=== PATIENT | male | born 1975 | race Caucasian/White ===

== ENCOUNTER 2021-01-27 10:27 | Outpatient (REF) | payer MEDICAID, SELFPAY ==
[2021-01-27 12:00] LABS: Prostate Specific Antigen 0.62 ng/mL (<0.05-4.0)
== END 2021-01-27 10:28 | disposition home or self-care (01) ==
LOC: HO.LAB 10:27
PROVIDERS: PCP Family Medicine; Visit Provider Family Medicine
DX: Z12.5 Encounter for screening for malignant neoplasm of prostate (principal); R39.15 Urgency of urination
CPT/HCPCS: 36415; 84153

== ENCOUNTER → 2021-04-25 08:53 | Outpatient (BNVA) | payer MEDICAID, SELFPAY | PROVIDERS: PCP Family Medicine; Visit Provider Nurse Practitioner Family | DX: M47.816 Spondylosis without myelopathy or radiculopathy, lumbar region (principal); M53.9 Dorsopathy, unspecified | CPT/HCPCS: 99212 ==

== ENCOUNTER 2021-05-09 06:06 | Outpatient (REF) | payer MEDICAID, SELFPAY ==
--- NOTE | ~2021-05-09 | FL_ITS ---
EXAMINATION: XR FLUOROSCOPY WITH IMAGES CLINICAL INFORMATION: Spondylosis without myelopathy or radiculopathy. COMPARISON: None. TECHNIQUE: Fluoroscopy performed by Tanya Braga NP Fluoroscopy time: 1.1 minutes DAP: 10.0 Gycm2 Images: 1 FINDINGS: There are bilateral needles positioned adjacent to the pedicles with contrast opacification of left epidural space and right extradural space along the right L5 nerve root pathway. Visualized bones are grossly unremarkable. SI joints are normal and symmetrical. FL/FL guidance in treatment room IMPRESSION: Fluoroscopy was provided to Tanya Braga NP for pain management.
== END 2021-05-09 06:07 | disposition home or self-care (01) ==
LOC: HO.RADIR 06:06
PROVIDERS: Visit Provider Internal Medicine
DX: M47.816 Spondylosis without myelopathy or radiculopathy, lumbar region (principal); M53.9 Dorsopathy, unspecified
CPT/HCPCS: 64483; 64484; J1100; Q9967

== ENCOUNTER → 2021-06-12 08:48 | Outpatient (BNVA) | payer MEDICAID, SELFPAY | PROVIDERS: PCP Family Medicine; Visit Provider Nurse Practitioner Family | DX: M47.816 Spondylosis without myelopathy or radiculopathy, lumbar region (principal); M53.9 Dorsopathy, unspecified | CPT/HCPCS: 99212 ==

== ENCOUNTER → 2022-05-23 13:37 | Outpatient (BNVA) | payer OTHER, SELFPAY | PROVIDERS: PCP Family Medicine; Visit Provider Physician Assistant | DX: S53.491A Other sprain of right elbow, initial encounter (principal); X50.0XXA Overexertion from strenuous movement or load, initial encounter; M77.11 Lateral epicondylitis, right elbow | CPT/HCPCS: 73070; 99203 ==

== ENCOUNTER → 2022-05-28 14:58 | Outpatient (BNVA) | payer OTHER, SELFPAY | PROVIDERS: PCP Family Medicine; Visit Provider Physician Assistant Medical | DX: S53.491A Other sprain of right elbow, initial encounter (principal); X50.0XXA Overexertion from strenuous movement or load, initial encounter; M77.11 Lateral epicondylitis, right elbow | CPT/HCPCS: 99213 ==

== ENCOUNTER 2022-07-17 11:30 | Outpatient (REF) | payer MEDICAID, SELFPAY ==
[2022-07-17 12:42] LABS: Prostate Specific Antigen 0.79 ng/mL (<0.05-4.0); ~HepC Num1 0.13 S/CO (0.00-0.79); ~Hepatitis C Antibody Nonreactive (Nonreactive)
== END 2022-07-17 11:31 | disposition home or self-care (01) ==
LOC: HO.LAB 11:30
PROVIDERS: PCP Family Medicine; Visit Provider Family Medicine
DX: I10 Essential (primary) hypertension (principal)
CPT/HCPCS: 36415; 84153; 86803

== ENCOUNTER 2022-11-01 08:16 | Day surgery (SDC) | payer MEDICAID, SELFPAY ==
[2022-11-01 08:42] VITALS: BMI 31.3
[2022-11-01 08:45] VITALS: BP 137/98; PULSE 68; RESP 18; TEMP 36.1; O2SAT 99
[2022-11-01] MEDS: Lactated Ringers 1,000 ML 80 ML IVCONT (09:14)
--- NOTE | 2022-11-01 09:59 | HO.ANESPROP2 ---
HPI - Anesthesia Eval Consult details Narrative: sceening PMFSH Active Problems Active Problems: All Active Problems (Updated 04/25/21 @ 10:13 by Tanya Braga NP) Multilevel degenerative disc disease (Acute) Lumbar facet arthropathy (Acute) Hypertension (Acute) Past Medical History Medical History (Updated 04/25/21 @ 10:13 by Tanya Braga NP) Hypertension Family History Family history of problems with anesthesia: No Surgical History History of Problems with Anesthesia: No Social History Social History Patient Tobacco Use Status: Former Tobacco user Quit Date: 2006 Use of substances other than those prescribed or required for medical reasons: No Are you DNR?: No Advance Directives: No Advance Directives Information Provided: Yes Meds Allergies Allergy/AdvReac Type Severity Reaction Status Date / Time No Known Allergies Allergy Verified 06/12/21 08:57 [No Known Allergies*] Active Medications: Current Medications Lactated Ringer's (Lr) 1,000 mls @ 80 mls/hr IVCONT .[id number] SURJIT Last Admin: 11/01/22 09:14 Dose: 80 mls/hr Sodium Biphosphate/Sodium Phosphate (Sodium Phosphate,Imperial-Dibasic 133 Ml Enema) 133 ml PA ONCE PRN PRN Reason: Poor Colonoscopy Prep Results Home Medications Medication Instructions Recorded Confirmed Last Taken Type baclofen 10 mg tablet 10 mg PO BID 04/25/21 06/12/21 Unknown History lisinopril 20 mg tablet 20 mg PO DAILY 04/25/21 06/12/21 Unknown History naproxen sodium 220 mg tablet 220 mg PO BID PRN 04/25/21 06/12/21 Unknown History (Flanax (naproxen)) cetirizine 10 mg tablet 1 tab PO DAILY PRN allergies 10/31/22 10/31/22 Unknown History diclofenac sodium 1 % topical gel 2 g topical QID PRN pain 10/31/22 10/31/22 Unknown History fluticasone propionate 50 1 spray intranasal DAILY 10/31/22 10/31/22 Unknown History mcg/actuation nasal spray,suspension ketotifen fumarate 0.025 % (0.035 1 drp ophthalmic (eye) BID PRN 10/31/22 10/31/22 Unknown History %) eye drops redness Exam Exam Date and Time: November 01, 2022 0959 Height,Weight and Vital Signs: Height 5 ft 7 in Weight 90.718 kg Last Vital Signs Temp 97.0 F 11/01/22 08:45 Pulse 68 11/01/22 08:45 Resp 18 11/01/22 08:45 BP 137/98 H 11/01/22 08:45 Pulse Ox 99 11/01/22 08:45 O2 Del Method 11/01/22 08:45 Airway Mallampati Class: I TM Dist: >3cm Neck ROM: Full Heart: rr Lungs: cta Assessment and Plan Final Anesthetic Review Family History of Problems with Anesthesia: No History of Problems with Anesthesia: No NPO: Yes ASA Class: II Final Preanesthetic Review: No Changes in Pt Med Stat Patient Risk: Low Procedure Risk: Low Anesthetic Plan Anesthetic Plan: MAC: Disposition: Standard PACU
--- NOTE | 2022-11-01 10:26 | P.BOP_ITS ---
Brief Operative Note Date of Service: 11/01/22 Pre-op diagnosis: Screening Post-op diagnosis: other (Polyps) Procedure: Colonoscopy to the cecum and TI with cold snare polypectomy in the transverse colon, and bx/removal of polyp Surgeon: Justin Benson Anesthesia: MAC Was an Service Station Cashier used for this Procedure?: No Estimated blood loss (mL): 2.0 Pathology: other (A. Transverse colon polyp B. Polyp at 20cm) Condition: stable Disposition: PACU
[2022-11-01 10:28] VITALS: BP 86/45; PULSE 72; RESP 18; TEMP 36.1; O2SAT 95
[2022-11-01 10:34] VITALS: BP 96/57; PULSE 68; RESP 16; O2SAT 95
[2022-11-01 10:43] VITALS: BP 109/74; PULSE 68; RESP 18; TEMP 36.1; O2SAT 98
--- NOTE | 2022-11-01 12:01 | OP_ITS ---
SURGEON: Justin Benson MD INDICATIONS: The patient presents for evaluation of colorectal cancer screening. Full consent was obtained from him for this, including risks of bleeding and perforation. PREOPERATIVE DIAGNOSIS: Colorectal cancer screening. POSTOPERATIVE DIAGNOSIS: PROCEDURE PERFORMED: Colonoscopy to the cecum and terminal ileum with biopsy and removal of polyp. ESTIMATED BLOOD LOSS: COMPLICATIONS: ANESTHESIA: Monitored anesthesia care ASSISTANTS: SPECIMENS: POSTOPERATIVE DIAGNOSES: Colorectal cancer screening, small colon polyps, internal hemorrhoids. DESCRIPTION OF PROCEDURE: The patient was placed in the left lateral decubitus position. The digital rectal exam revealed no abnormalities. The Olympus video pediatric colonoscope was then entered into the rectum and advanced easily to the cecum. Once in the cecum, I did identify normal-appearing cecal pouch with appendiceal orifice and normal-appearing ileocecal valve. The terminal ileum was cannulated and it appeared normal. The scope was withdrawn back in the colon. The entire cecum and cecal valve appeared normal. The scope was then slowly withdrawn assessing all mucosal surfaces carefully. Preparation was excellent. In the area of the transverse colon was an approximately 4 or 5 mm polyp, which was removed by cold snare polypectomy and recovered by suction. The polypectomy site appeared clean, without any sign of residual polyp nor any significant bleeding. At 20 cm, there was an approximately 3 mm polyp which was removed completely with a cold biopsy forceps. I did not visualize any other polyps, colitis nor angiodysplasia. In the rectum, scope was retroflexed visualizing internal hemorrhoids but no other pathology. The rectal mucosa appeared normal. The scope was straightened and withdrawn from the patient. He tolerated the procedure well and was returned to the recovery area in stable condition. IMPRESSION: 1. Small colon polyps. 2. Internal hemorrhoids. PLAN: The results of the biopsies will be checked. If these are tubular adenomas I would recommend a followup colonoscopy in 5 years. It they are both hyperplastic I would recommend followup colonoscopy in 10 years. He will otherwise see me on a p.r.n. basis. This has been discussed with his . MD BENJI Martinez/LAWRENCE / [id number] MTDD
== END 2022-11-01 11:05 | disposition home or self-care (01) ==
PROVIDERS: PCP Family Medicine; Visit Provider Internal Medicine
PROC: 0DJD8ZZ Inspection of Lower Intestinal Tract, Via Natural or Artificial Opening Endoscopic (ICD-10-PCS; CPT 45378; principal; 2022-11-01 09:40)
DX: Z12.11 Encounter for screening for malignant neoplasm of colon (principal); K63.5 Polyp of colon; K64.8 Other hemorrhoids; I10 Essential (primary) hypertension; J30.2 Other seasonal allergic rhinitis; Z79.51 Long term (current) use of inhaled steroids; Z79.899 Other long term (current) drug therapy; Z87.891 Personal history of nicotine dependence
CPT/HCPCS: 45385; 45380; 88305

== ENCOUNTER 2023-10-14 11:00 | Outpatient (REF) | payer MEDICAID, SELFPAY ==
[2023-10-14 13:34] LABS: MANUAL DIFF FLAG NO
[2023-10-14 13:42] LABS: Basophils Percent Auto 0.6 % (0-2); Eosinophils Absolute Auto 0.1 X10*3/uL (0.0-0.4); Eosinophils Percent Auto 0.8 % (0-4); Hematocrit 46.5 % (42.0-52.0); Imm Gran Abs Auto 0.02 X10*3/uL (0.00-0.03); Imm Gran Pct Auto 0.3 % (0.0-0.4); Lymphocytes Percent Auto 27.7 % (20-40); Mean Corpuscular HGB Conc 34.4 g/dl (31.0-36.0); Mean Corpuscular Hemoglobin 29.9 pg (27.0-33.0); Mean Corpuscular Volume 86.9 fL (80.0-98.0); Mean Platelet Volume 9.4 fL (9.4-12.4); Monocytes Absolute Auto 0.6 X10*3/uL (0.1-1.2); Monocytes Percent Auto 8.6 % (2-11); Neutrophils Absolute Auto 4.5 x10*3/uL (2.0-8.3); Platelet Count 201 X10*3/uL (160-400); Red Blood Count 5.35 X10*6/uL (4.60-5.80); Red Cell Distribution Width 13.2 % (11.0-16.0); White Blood Count 7.2 X10*3/uL (4.8-10.8)
[2023-10-14 14:23] LABS: Estimated Average Glucose 103 mg/dL; Hemoglobin A1c % 5.2 % (<6.0)
[2023-10-14 14:50] LABS: Alanine Aminotransferase 29 U/L (0-40); Albumin Level 4.4 g/dL (3.5-5.0); Alkaline Phosphatase 70 U/L (39-117); Anion Gap 12 (12-20); Aspartate Amino Transferase 23 U/L (5-37); Bilirubin Total 0.7 mg/dL (0.0-1.0); Blood Urea Nitrogen 15 mg/dL (9-16); Calcium 9.3 mg/dL (8.4-10.2); Carbon Dioxide 30 mmol/L (22-29); Chloride 102 mmol/L (96-108); Cholesterol 177 mg/dL (<200); Estimated Glomerular Filt Rate > 60; Glucose Random 91 mg/dL (60-115); HDL Cholesterol 36 mg/dL (>40); LDL Cholesterol Calculated 120 mg/dL (<100); Potassium 4.2 mmol/L (3.3-5.1); Sodium 140 mmol/L (135-145); Total Protein 7.6 g/dL (6.5-8.0); Triglycerides 109 mg/dL (<150)
[2023-10-14 15:00] LABS: Reflex LDLD? No
[2023-10-14 15:07] LABS: TSH reflex Free T4 1.08 uIU/mL (0.32-4.0)
== END 2023-10-14 11:01 | disposition home or self-care (01) ==
LOC: HO.HHCL 11:00
PROVIDERS: Visit Provider Family Medicine
DX: I10 Essential (primary) hypertension (principal); R42 Dizziness and giddiness; R55 Syncope and collapse
CPT/HCPCS: 36415; 80053; 80061; 83036; 84443; 85025

== ENCOUNTER → 2023-10-21 12:45 | Outpatient (REF) | payer OTHER, SELFPAY ==
--- NOTE | 2023-10-21 12:48 | HM_ITS ---
Conclusion: 1. Patient was monitored for total period of 2 days 2. Baseline was normal sinus rhythm with average heart of 62 beats per minute 3. No significant pauses noted 4. Occasional PACs and PVCs noted 5. No patient reported events MTDD
== END ==
LOC: HO.CARD 12:45
PROVIDERS: PCP Family Medicine; Visit Provider Family Medicine
DX: R55 Syncope and collapse (principal)
CPT/HCPCS: 93225

== ENCOUNTER → 2023-10-21 12:48 | Outpatient (BNV) | payer OTHER, SELFPAY | PROVIDERS: PCP Family Medicine; Visit Provider Internal Medicine Cardiovascular Disease | DX: I49.1 Atrial premature depolarization (principal); I49.3 Ventricular premature depolarization | CPT/HCPCS: 93227 ==

== ENCOUNTER 2023-12-16 15:26 | Emergency (ER) | payer OTHER, SELFPAY ==
--- NOTE | ~2023-12-16 | XR_ITS ---
EXAMINATION: XR chest 1V CLINICAL INFORMATION: Reason for Exam CHEST PAIN COMPARISON: 03/16/2015 TECHNIQUE: Single portable frontal view. Tubes and lines: None Lungs and pleura: Both lungs are clear. Heart and mediastinum: The mediastinum is within normal limits.. Bones/soft tissue: Skeletal structures included are normal for patient's age. XR/XR chest 1V IMPRESSION: No radiographic evidence of acute cardiopulmonary disease.
--- NOTE | 2023-12-16 15:31 | ECG_ITS ---
Test Reason : CP Blood Pressure : / mmHG Vent. Rate : 074 BPM Atrial Rate : 074 BPM P-R Int : 182 ms QRS Dur : 096 ms QT Int : 378 ms P-R-T Axes : 033 000 023 degrees QTc Int : 419 ms Normal sinus rhythm with sinus arrhythmia Minimal voltage criteria for LVH, may be normal variant ( R in aVL ) Borderline ECG When compared with ECG of 16-MAR-2015 06:51, Nonspecific T wave abnormality has replaced inverted T waves in Inferior leads Referred By: Narayan Willoughby Electronically Signed By:Jose Armando Whaley
[2023-12-16 16:04] VITALS: BP 142/94; PULSE 66; RESP 16; TEMP 36.6; O2SAT 98; BMI 31.9
--- NOTE | 2023-12-16 16:07 | ED_ITS ---
HPI - General Adult General Chief complaint: Dizziness Stated complaint: chest pain Time Seen by Provider: 12/16/23 21:21 Source: patient Mode of arrival: ambulatory History of Present Illness HPI narrative: 48-year-old male presents with 2nd episode of vertigo while at work and states that he felt like he almost passed out and with this felt a little bit short of breath with some nausea patient has had a similar episode approximately 1 month ago for which he was placed on a Holter monitor which did not show any abnormalities. Patient has no other past medical history other than hypertension, denies any alcohol/illicit drug/smoking and has had no history of recent illness, travel or lower extremity swelling. Related Data Home Medications Medication Instructions Recorded Confirmed baclofen 10 mg tablet 10 mg PO BID 04/25/21 06/12/21 lisinopril 20 mg tablet 20 mg PO DAILY 04/25/21 06/12/21 naproxen sodium 220 mg tablet 220 mg PO BID PRN 04/25/21 06/12/21 (Flanax (naproxen)) cetirizine 10 mg tablet 1 tab PO DAILY PRN allergies 10/31/22 10/31/22 diclofenac sodium 1 % topical gel 2 g topical QID PRN pain 10/31/22 10/31/22 fluticasone propionate 50 1 spray intranasal DAILY 10/31/22 10/31/22 mcg/actuation nasal spray,suspension ketotifen fumarate 0.025 % (0.035 1 drp ophthalmic (eye) BID PRN 10/31/22 10/31/22 %) eye drops redness Previous Rx's Medication Instructions Recorded meclizine 12.5 mg tablet 12.5 mg PO BID PRN dizziness #7 12/16/23 tabs Allergies Allergy/AdvReac Type Severity Reaction Status Date / Time No Known Allergies Allergy Verified 06/12/21 08:57 [No Known Allergies*] Review of Systems 2 Review of Systems: Pertinent positives and negatives as stated in HPI [facility] Past Medical History Source: nursing notes reviewed Medical History Hypertension Social History Social History Patient Tobacco Use Status: Former Tobacco user Quit Date: 2006 Smoked in Last 30 Days: No Use of substances other than those prescribed or required for medical reasons: No Advance Directives: No Advance Directives Information Provided: No Physical Exam ED Vital Signs: Vital Signs - 24 hr 12/16/23 21:24 12/16/23 22:05 12/16/23 22:05 Temperature 98.0 F Pulse Rate 64 63 65 Respiratory Rate 14 Blood Pressure 135/83 127/85 134/92 H Pulse Oximetry 99 Oxygen Delivery Method Room Air 12/16/23 22:05 12/16/23 22:57 Temperature 98.0 F Pulse Rate 68 82 Respiratory Rate 14 Blood Pressure 136/89 142/87 H Pulse Oximetry 98 Oxygen Delivery Method Room Air BMI result Body Mass Index 31.9 VITAL SIGNS: Reviewed. GENERAL: Well developed, well nourished, in no acute distress. HEAD: Normocephalic/atraumatic, EYES: PERRLA, EOMI intact without pain, no nystagmus/pallor/icterus noted EARS: Ext canals without abnormality, TMs non-bulging and non-erythematous NOSE: Nares patent bilateral OROPHARYNX: no oral lesions noted, posterior pharynx clear and non-erythematous without noted tonsillar enlargement/erythema/exudates NECK: Supple, no adenopathy LUNGS: Normal breath sounds. No adventitious sounds or accessory muscle use. SpO2<98> CARDIOVASCULAR: Regular rate and rhythm without noted murmurs, no JVD or lower extremity edema. ABDOMEN: Soft, non-tender, non-distended with bowel sounds. No rigidity. No guarding. No palpable masses or hernias noted MUSCULOSKELETAL: No tenderness, deformities, or effusions noted on gross inspection. EXTREMITIES: No cyanosis, clubbing or edema. SKIN: Inspection of the skin reveals no rashes, ulcerations, jaundice, pallor, or petechiae. NEUROLOGIC: Alert and oriented x 4. Strength and sensation to light touch were grossly intact x 4. Course Course Course Narrative: RME: 48 yold male presents to the ED for chest pain, dizziness, and nuasea. Neuro exam intact. labs ordered and EKG ordered Medical Decision Making Medical Decision Making MDM Narrative: 48-year-old male with history and clinical presentation, DDX: PERC negative, no suspicion for viral illness/pneumonia, possibility of benign vertigo, poor oral intake, possible medication side effect. Patient is otherwise nonfocal. HEART Score-3 I reviewed all investigations and hematologic indices are negative for leukocytosis/anemia/thrombocytopenia. Coagulation studies are within normal limits. Chemistries disease are negative for evidence of SREEKANTH/electrolyte or liver enzyme derangements, serial troponins are undetectable and EKG does not demonstrate any ischemic changes of concern. Orthostatics are negative. Chest x-ray is negative for evidence of infiltrative venous congestion otherwise my interpretation is in agreement with radiology's impression. My interpretation is that patient likely has BPPV, although heart score is low risk given age and history of hypertension patient was encouraged to follow-up with primary care doctor and discuss possible referral to cardiology for stress testing. Patient will also be discharged on low-dose meclizine as a trial for as needed recurrence of symptoms. Differential Diagnosis Differential Diagnoses: The differential diagnosis associated with the presentation includes Please see the discussion above Admission/Observation Consideration of admission/observation: Escalation of care including admission/observation considered Please see the discussion above Lab Data MDM Lab Attestation statement: I reviewed the patient's lab results. Please see the discussion above 12/16/23 16:11 12/16/23 16:11 Labs: Lab Results 12/16/23 12/16/23 Range/Units 16:11 21:30 WBC 10.2 (4.8-10.8) X10*3/uL RBC 4.75 (4.60-5.80) X10*6/uL Hgb 14.6 (14.0-18.0) g/dl Hct 41.3 L (42.0-52.0) % MCV 86.9 (80.0-98.0) fL MCH 30.7 (27.0-33.0) pg MCHC 35.4 (31.0-36.0) g/dl RDW 13.3 (11.0-16.0) % Plt Count 208 (160-400) X10*3/uL MPV 8.9 L (9.4-12.4) fL Immature Gran % (Auto) 0.2 (0.0-0.4) % Neut % (Auto) 77.7 H (45-73) % Lymph % (Auto) 13.9 L (20-40) % [place] % (Auto) 7.3 (2-11) % Eos % (Auto) 0.5 (0-4) % Baso % (Auto) 0.4 (0-2) % Lymph # (Auto) 1.4 (1.2-4.9) X10*3/uL [place] # (Auto) 0.7 (0.1-1.2) X10*3/uL Eos # (Auto) 0.1 (0.0-0.4) X10*3/uL Baso # (Auto) 0.0 (0.0-0.2) X10*3/uL Abs Immat Gran (auto) 0.02 (0.00-0.03) X10*3/uL Absolute Neuts (auto) 7.9 (2.0-8.3) x10*3/uL Absolute Nucleated RBC 0.000 (0.0-0.012) X10*3/uL Nucleated RBC % (auto) 0.0 (0.0-0.2) /100WBC PT 12.2 (11.1-13.3) SEC INR 1.0 (0.9-1.1) APTT 29.0 (26.0-36.8) SEC Sodium 142 (135-145) mmol/L Potassium 4.1 (3.3-5.1) mmol/L Chloride 108 (96-108) mmol/L Carbon Dioxide 26 (22-29) mmol/L Anion Gap 12 (12-20) BUN 16 (9-16) mg/dL Creatinine 1.00 (0.5-1.4) mg/dL Estim Creat Clear Calc 100.0 Estimated GFR > 60 Random Glucose 84 (60-115) mg/dL Calcium 9.0 (8.4-10.2) mg/dL Total Bilirubin 0.6 (0.0-1.0) mg/dL AST 34 (5-37) U/L ALT 47 H (0-40) U/L Alkaline Phosphatase 74 (39-117) U/L Troponin I High Sens < 2.7 < 2.7 (<3.5-35.0) ng/L Total Protein 7.1 (6.5-8.0) g/dL Albumin 4.2 (3.5-5.0) g/dL Independent Interpretation I performed an independent interpretation of an: EKG Interpretation: Normal sinus rhythm, HR-74, no STEMI, NH/QRS/QTC is within normal limits. Radiology Impression Discussion of test interpretation with radiology: I have reviewed the radiologist's reading. Radiologist Impression: Please see the discussion above External Record Review External record reviewed: Outpatient record, Prior outpatient labs and Prior outpatient radiology Chronic Conditions Patient?s care impacted by: Hypertension Critical Care Time Critical Care Time Critical Care Time: Yes Total Critical Care Time: 30 Attestation: I personally attest to this time spent taking care of the patient. Discharge Plan Discharge Clinical Impression: Benign paroxysmal positional vertigo Patient Disposition: Home, Self-Care Instructions: Vertigo (ED), Benign Paroxysmal Positional Vertigo (ED) Additional Instructions: 1. Resume all home medications as prescribed. 2. Please follow-up with primary care doctor in the next 2-3 days. Return to the ER for any worsening symptoms. Prescriptions: New meclizine 12.5 mg tablet 12.5 mg PO BID PRN (Reason: dizziness) Qty: 7 0RF No Action cetirizine 10 mg tablet 1 tab PO DAILY PRN (Reason: allergies) ketotifen fumarate 0.025 % (0.035 %) drops 1 drp ophthalmic (eye) BID PRN (Reason: redness) fluticasone propionate 50 mcg/actuation [place],Suspension 1 spray INTRANASAL DAILY Rx Instructions: administer into each nostril diclofenac sodium 1 % gel 2 g topical QID PRN (Reason: pain) baclofen 10 mg tablet 10 mg PO BID lisinopril 20 mg tablet 20 mg PO DAILY naproxen sodium [Flanax (naproxen)] 220 mg tablet 220 mg PO BID PRN Referrals: Hope Sevilla MD [Primary Care Provider] - Stand Alone Forms: Work/School Release Interventions: ED Discharge Assessment Last Done: 12/16/23 22:57 Discharge Date/Time: 12/16/23 23:01
[2023-12-16 16:15] LABS: MANUAL DIFF FLAG NO
[2023-12-16 16:20] LABS: Basophils Percent Auto 0.4 % (0-2); Eosinophils Absolute Auto 0.1 X10*3/uL (0.0-0.4); Eosinophils Percent Auto 0.5 % (0-4); Hematocrit 41.3 % (42.0-52.0); Hemoglobin 14.6 g/dl (14.0-18.0); Imm Gran Abs Auto 0.02 X10*3/uL (0.00-0.03); Imm Gran Pct Auto 0.2 % (0.0-0.4); Lymphocytes Absolute Auto 1.4 X10*3/uL (1.2-4.9); Lymphocytes Percent Auto 13.9 % (20-40); Mean Corpuscular HGB Conc 35.4 g/dl (31.0-36.0); Mean Corpuscular Hemoglobin 30.7 pg (27.0-33.0); Mean Corpuscular Volume 86.9 fL (80.0-98.0); Mean Platelet Volume 8.9 fL (9.4-12.4); Monocytes Absolute Auto 0.7 X10*3/uL (0.1-1.2); Monocytes Percent Auto 7.3 % (2-11); Neutrophils Absolute Auto 7.9 x10*3/uL (2.0-8.3); Neutrophils Percent Auto 77.7 % (45-73); Platelet Count 208 X10*3/uL (160-400); Red Blood Count 4.75 X10*6/uL (4.60-5.80); Red Cell Distribution Width 13.3 % (11.0-16.0); White Blood Count 10.2 X10*3/uL (4.8-10.8)
[2023-12-16 16:25] LABS: Prothrombin Time 12.2 SEC (11.1-13.3)
[2023-12-16 16:30] LABS: Alanine Aminotransferase 47 U/L (0-40); Albumin Level 4.2 g/dL (3.5-5.0); Alkaline Phosphatase 74 U/L (39-117); Anion Gap 12 (12-20); Aspartate Amino Transferase 34 U/L (5-37); Bilirubin Total 0.6 mg/dL (0.0-1.0); Blood Urea Nitrogen 16 mg/dL (9-16); Carbon Dioxide 26 mmol/L (22-29); Chloride 108 mmol/L (96-108); Estimated Glomerular Filt Rate > 60; Glucose Random 84 mg/dL (60-115); Potassium 4.1 mmol/L (3.3-5.1); Sodium 142 mmol/L (135-145); Total Protein 7.1 g/dL (6.5-8.0)
[2023-12-16 16:38] LABS: Troponin-I High Sensitivity < 2.7 ng/L (<3.5-35.0)
[2023-12-16 21:24] VITALS: BP 135/83; PULSE 64; RESP 14; TEMP 36.7; O2SAT 99
--- NOTE | 2023-12-16 21:36 | PC.NURSE ---
Pt brought back from waiting room, placed on monitoring analyst (normal sinus 60-70s). Pt reports mild dizziness while laying down, denies worsening upon movement. Pt reports he had a similar episode a few months ago, was placed on a holter monitor but nothing came out of the situation. Pt is in no apparent distress at this time, respirations even and unlabored, skin pwd, alert and oriented x4. denies palpitations, CP, SOB, ARMSTRONG Passed swallow screen without issue No stroke symptoms noted at this time
[2023-12-16 21:56] LABS: Troponin-I High Sensitivity < 2.7 ng/L (<3.5-35.0)
[2023-12-16 22:05] VITALS: BP 127/85; BP 134/92; BP 136/89; PULSE 63; PULSE 65; PULSE 68
[2023-12-16 22:57] VITALS: BP 142/87; PULSE 82; RESP 14; TEMP 36.7; O2SAT 98
== END 2023-12-16 23:01 | disposition home or self-care (01) ==
PROVIDERS: Physician Assistant; Emergency Provider Student in an Organized Health Care Education/Training Program; PCP Family Medicine
DX: H81.13 Benign paroxysmal vertigo, bilateral (principal); R07.89 Other chest pain; R11.0 Nausea; Z79.899 Other long term (current) drug therapy
CPT/HCPCS: 36415; 71045; 80053; 84484; 85025; 85610; 85730; 93005; 99283; 99285

== ENCOUNTER → 2023-12-16 15:31 | Outpatient (BNV) | payer OTHER, SELFPAY | PROVIDERS: Emergency Provider Student in an Organized Health Care Education/Training Program; PCP Family Medicine; Visit Provider Internal Medicine Cardiovascular Disease | DX: R07.9 Chest pain, unspecified (principal) | CPT/HCPCS: 93010 ==

== ENCOUNTER 2024-01-24 09:44 | Outpatient (REF) | payer OTHER, SELFPAY ==
[2024-01-24 11:16] LABS: Blood Urea Nitrogen 13 mg/dL (9-16); Estimated Glomerular Filt Rate > 60
== END 2024-01-24 09:45 | disposition home or self-care (01) ==
LOC: HO.LAB 09:44
PROVIDERS: PCP Family Medicine; Visit Provider Family Medicine
DX: R42 Dizziness and giddiness (principal)
CPT/HCPCS: 36415; 82565; 84520

== ENCOUNTER 2024-02-13 12:22 | Outpatient (REF) | payer OTHER, SELFPAY ==
--- NOTE | ~2024-02-13 | MR_ITS ---
EXAMINATION: MR BRAIN WITHOUT AND WITH CONTRAST CLINICAL INFORMATION: Vertigo COMPARISON: None TECHNIQUE: Multiplanar multisequence MR imaging of the brain was obtained without and following the administration of 9 mL Gadavist intravenous contrast. FINDINGS: There is no acute infarct on diffusion-weighted imaging. There is no intracranial hemorrhage on iron-sensitive imaging. No extra-axial collection or mass effect/herniation. There are several scattered foci of nonspecific supratentorial white matter T2/FLAIR signal abnormality. No hydrocephalus. The ventricles are normal in morphology and size. No abnormal parenchymal or extra-axial enhancement. The major flow voids at the skull base are preserved. The midline structures are normal. The cerebellar tonsils are normally positioned. The craniocervical junction is normal. Marrow signal is within normal limits. The visualized soft tissues are without significant abnormality. Mild left greater than right anterior ethmoid sinus mucosal thickening. MR/MR head/brain wo/w con IMPRESSION: Unremarkable contrast enhanced MRI of the brain.
[2024-02-13] MEDS: gadobutroL 10 ML VIAL IVPUSH (13:25)
== END 2024-02-13 12:23 | disposition home or self-care (01) ==
LOC: HO.MRI 12:22
PROVIDERS: PCP Family Medicine; Visit Provider Family Medicine
DX: R42 Dizziness and giddiness (principal)
CPT/HCPCS: 70553; A9585

== ENCOUNTER 2024-02-26 11:18 | Outpatient (REF) | payer OTHER, SELFPAY ==
--- NOTE | ~2024-02-26 | XR_ITS ---
EXAMINATION: XR LUMBOSACRAL SPINE WITH OBLIQUES CLINICAL INFORMATION: Lumbar disc disease COMPARISON: MRI lumbar spine 03/24/2018, lumbar spine radiographs 07/28/2015 TECHNIQUE: AP, both oblique, and lateral views of the lumbar spine. Lateral view of the lumbosacral junction. FINDINGS: Mild degenerative changes are present throughout the lumbar spine with mild disc space narrowing noted at most levels most marked at L4-L5. Some mild spondylitic endplate changes are seen from L3 through L5. Findings have progressed slightly when compared to 2014. No fractures or bony destructive lesions are seen. SI joints appear normal. Visualized hips are unremarkable. XR/XR lumbar spine 4V min IMPRESSION: Mild degenerative changes in the lumbar spine as described above.
== END 2024-02-26 11:19 | disposition home or self-care (01) ==
LOC: HO.HHCX 11:18
PROVIDERS: Visit Provider Registered Nurse
DX: M51.9 Unspecified thoracic, thoracolumbar and lumbosacral intervertebral disc disorder (principal)
CPT/HCPCS: 72110

== ENCOUNTER 2025-01-24 14:37 | Outpatient (REF) | payer OTHER, SELFPAY ==
--- OUTSIDE RECORDS SUMMARY | 2025-01-24 16:12 | XMS_ITS | Encounter Summary ---
Author Organization [employer] Address [address] [place] [address] Care Team Providers Care Inbound Telemarketer Name Role Phone Hope Sevilla MD Primary Care Provider [phone] Renzo Nichole PharmD Unavailable [phone] Reason for Visit * Reason Onset Date Comments Med Refill 11/18/2024 Medication Question 11/18/2024 Encounter Details Date Type Department Care Team (Late st Contact Info) Description 11/18/2024 Telephone [facility] [address], [place] [phone] Hope Sevilla MD [address] [place], [place] [phone] Med Refill; Medication Question Social History Tobacco Use Types Packs/Day Years Used Date Smoking Tobacco: Never Passive Smoke Exposure: Never Smokeless Tobacco: Never Alcohol Use Standard Drinks/Week Comments Never 0 (1 standard drink = 0.6 oz pur e alcohol) Depression Answer Date Recorded Patient Health Questionnaire-9 Score 0 07/27/2024 Patient Health Questionnaire-9 Score 0 07/27/2024 Last PHQ-9: Questionnaire Data Not on file 1 09/26/2023 Housing Stability Answer Date Recorded What is your housing situation today? I have susanna adamson 07/24/[address] you li ve. Do you have problems with any of the following? None of the above 07/24/2023 Food Insecurity Answer Date Recorded Within the past 12 months, y ou worried that your food would run out before you got money to buy more: Never True 10/14/2023 Within the past 12 months,th e food you bought just didn't last and you didn't have enough money to get more: Never True Transportation Answer Date Recorded In the past 12 months, has l ack of transportation kept you from medical appts, meetings, work or from getting things needed for daily living? No 07/24/2023 Utilities Answer Date Recorded In the past 12 months, has t he electric, gas, oil or water company threatened to shut off services in your home? No 07/24/2023 Depression Answer Date Recorded Patient Health Questionnaire-2 Score 0 07/27/2024 Sex and Gender Information Value Date Recorded Sex Assigned at Male 07/22/2022 10:17 AM EDT Legal Sex Male 10:17 AM EDT Gender Identity Male 07/22/2022 10:17 AM EDT Sexual Orientation Straight 07/22/2022 10 :17 AM EDT documented as of this encounter Miscellaneous Notes * Telephone Encounter - Aditi Betancourt RN - 11/18/2024 3:37 PM EST Telephone call to pt using [employer] sales associate Nuha #[id number]. Pt reports continuation of ongoingissue (BPPV noted in chart and office note from 12/2023) that sent him to ED in 11/2023. He is askingfor refill of meclizine 12.5mg that he got in ED. Pt reports frequent but random episodes of dizziness when he bends down or lays on my side. He denies weakness or numbness in limbs, or or sudden change in vision. No sick on sites available [id number] hours, pt reviewed [place] hours/Friday hours, pt declined and asked if message could be sent to PCP for medication given that she knows about this issue for me and it isn't new and I have an appt with her on 12/13/24. Advised him will send message and any updates will be communicated back. Reviewed ED precautions: any new numbness/weakness/tingling or sudden changes in vision or other neurological symptoms. Pt verbalized understanding. * Telephone Encounter - Gabriella Justice - 11/18/2024 2:44 PM EST Tc from pt requesting a script for medication prescribed during ED visit at [facility] months ago Pt stated he has already followed up with PCP. Medication meclime 12.5 mg Pharmacy: [facility] If any questions contact pt at [phone] ([email or web address]) documented in this encounter Plan of Treatment Not on file documented as of this encounter Goals Goal Patient Goal Type Associated Problems Recent Progress Patient-Stated? Author Blood Pressure < 140/90 Blood Pressure 131/82( 025 1:53 PM EDT) No Renzo Nichole, PharmD documented as of this encounter Visit Diagnoses Not on filedocumented in this encounter Additional Health Concerns Assessment Noted Time PHQ-9 Depression Total Score: 0 07/27/20 24 3:47 PM EST documented as of this encounter Care Teams Inbound Telemarketer Relationship Specialty Start Date End Date Hope Sevilla MD [address] [place] [address] PCP - General Family Medicine 09/11/20 Renzo Nichole, PharmD [address] [place] [address] Pharmacist Internal Medicine 01/27/23 documented as of this encounter
--- OUTSIDE RECORDS SUMMARY | 2025-01-24 16:12 | XMS_ITS | Clinical Summary ---
Author Organization [facility] Address [address] [place] [address] Phone Care Team Providers Care Other Spatial Scientist Name Role Phone Hope Sevilla MD Primary Care Provider [phone] Allergies No known active allergies Medications lisinopriL (PRINIVIL,ZESTRI L) 20 mg tablet Take 1 tablet (20 mg total) by mouth 1 (one) time each day. Active Encounters Date Type Department Care Team Description 11/02/2024 7:45 AM EST Anesthesia Event [facility] [place] [address] [place] [address] [phone] Tj Davis DO Abrokwah, Foster Myles G, EMERGENCY ROOM PHYSICIAN 11/02/2024 7:30 AM EST - 11/02/2024 10:00 AM EST Surgery [facility] OR [address] [place] [address] [phone] Huseyin Ferrari DO INTRACEPT L3, L4,L5 [94853 (CPT??) +1 more] 11/02/2024 6:09 AM EST - 11/02/2024 11:30 AM EST Hospital Encounter [facility] [place] [address] [place] [address] [phone] Huseyin Ferrari DO Discharge Disposition: Home or Self Care from Last 3 Months Medical History Medical History Date Comments Hypertension Chronic back pain Arthritis Social History Tobacco Use Types Packs/Day Years Used Date Smoking Tobacco: Never Smokeless Tobacco: Never Tobacco Cessation:Counseling Given: Not Answered Interpersonal Safety Answer Date Record ed Physical Abuse 11/02/2024 Verbal Abuse 11/02/2024 Sex and Gender Information Value Date Recorded Sex Assigned at Male 10/28/2024 11:44 AM EST Legal Sex Male 10:53 AM EST Gender Identity Male 10/28/2024 11:44 AM EST Sexual Orientation Straight 10/28/2024 11 :44 AM EST Obstetrics History Last Filed Vital Signs Vital Sign Reading Time Taken Comments Blood Pressure 140/93 11/02/2024 10:21 AM EST Pulse 63 11/02/2024 10:21 AM EST Temperature 36.2 ??C (97.2 ??F) 11/02/2024 10:[address] Respiratory Rate 13 11/02/2024 10:00 AM EST Oxygen Saturation 99% 11/02/2024 10:21 AM EST Inhaled Oxygen Concentration - - Weight 90.7 kg (200 lb) 11/02/2024 6:33 AM EST Height 170.2 cm (5' 7 ) 11/02/2024 6:33 AM EST Body Mass Index 31.32 11/02/2024 6:33 AM EST Plan of Treatment Health Maintenance Due Date Last Done Comments Hepatitis B Vaccines (3 of 3 - 19+ 3-dose series) 07/31/2007 03/05/2007, 01/28/2007 COVID-19 Vaccine (2023-2 5 season) 2024 Cholesterol Screening (Lipid Panel) 10/18/2024 Colorectal Cancer Screening: Colonoscopy 10/18/2024 Hepatitis C Screening 10/18/2024 Social Influencers of Health Screening 10/18/2024 Hypertension/CHF/CAD Annual BMP Blood Test 11/02/2024 Influenza Vaccine (Season Ended) 2025 09/28/2018, 05/29/2014, 06/18/2013 Depression Screening 07/27/2025 07/27/2024 DTaP,Tdap,and Td Vaccines (4 - Td or Tdap) 08/29/2027 08/29/2017, 03/30/2013, 06/18/2004 MMR Vaccines Aged Out 03/05/2007 No longer eligi ble based on patient's age to complete this topic HIV Screening Completed 03/28/2021 HIB Vaccines Aged Out No longer eligi ble based on patient's age to complete this topic HPV Vaccines Aged Out No longer eligi ble based on patient's age to complete this topic Hepatitis A Vaccines Aged Out No long er eligible based on patient's age to complete this topic IPV Vaccines Aged Out No longer eligi ble based on patient's age to complete this topic Meningococcal ACWY Vaccine Aged Out N o longer eligible based on patient's age to complete this topic Meningococcal B Vaccine Aged Out No l onger eligible based on patient's age to complete this topic Pneumococcal Vaccine: Pediatrics (0 to 5 Years) and At-Risk Patients (6 to 64 Years) Aged Out No longer eligible b ased on patient's age to complete this topic RSV Immunization Patients Under 20 months Aged Out No longer eligible b ased on patient's age to complete this topic Varicella Vaccines Aged Out No longer eligible based on patient's age to complete this topic Procedures Procedure Name Priority Date/Time Associated Diagnosis Comments XR LUMBAR SPINE 2-3 VIEWS Routine 11/02/2024 9:34 AM EST TH AN ENDOTRACHEAL(NO CHARGE) Routine 11/02/2024 8:19 AM EST MS THERM DEST INTRAOSSEOUS BASIVERT NRV INCL IMG GUD EA ADD VERT BOD LUM/S 11/02/2024 7:45 AM EST Vertebrogenic low back pain Case Notes C-ARMDESIREEDRESSAGE INSTRUCTOR Special Needs C-ARM MS THERM DEST INTRAOSSEOUS BASIVERT NRV INCL IMG GUD 1ST 2 VERT BOD LUM/S 11/02/2024 7:45 AM EST Vertebrogenic low back pain Case Notes C-ARMDESIREEDRESSAGE INSTRUCTOR Special Needs C-ARM from Last 3 Months Results * XR Lumbar Spine 2-3 Views (11/02/2024 9:34 AM EST) Anatomical Region Laterality Modality Spine, L-spine Radio Fluoroscop y 11/02/2024 9:40 AM EST Narrative 11/02/2024 9:41 AM EST Fluoroscopic spot radiographs obtained during the lumbar spine procedure are submitted. No radiologist consultation was requested or provided during this procedure and there is no radiologist professional charge. This report is generated for documentation purposes only. The dose-area product for this procedure was 1.49 mGy*m2 . PQRI CPT II G9500 -------- FINAL REPORT -------- Dictated By: Dima Arcos Dictated Date: 11/02/2024 09:40 ET Assigned Physician: Dima Arcos Reviewed and Electronically Signed By: Dima Arcos Signed Date: 11/02/2024 09:41 ET Workstation ID: [id number] Transcribed By: Self Edit Transcribed Date: 11/02/2024 09:40 ET Procedure Note Dima Arcos MD - 11/02/2024 Fluoroscopic spot radiographs obtained during the lumbar spine procedureare submitted. No radiologist consultation was requested or providedduring this procedure and there is no radiologist professional charge.This report is generated for documentation purposes only. The dose-area product for this procedure was 1.49 mGy*m2 . PQRI CPT II G9500 -------- FINAL REPORT -------- Dictated By: Dima Arcos Dictated Date: 11/02/2024 09:40 ET Assigned Physician: Dima Arcos Reviewed and Electronically Signed By: Dima Arcos Signed Date: 11/02/2024 09:41 ET Workstation ID: [id number] Transcribed By: Self Edit Transcribed Date: 11/02/2024 09:40 ET Huseyin Ferrari DO IMG XR PROCEDURES Final Resu lt * TH AN ENDOTRACHEAL(NO CHARGE) (11/02/2024 8:19 AM EST) Narrative Fernando rBock CRNA - 11/02/2024 8:19 AM EST Fernando Brock CRNA ? 11/02/2024 ??8:21 AM General Information and Staff Patient location during procedure: OR Resident/EMERGENCY ROOM PHYSICIAN: Fernando Brock CRNA Performed: resident/JJ/CAA Performed by: Fernando Brock CRNA Authorized by: Tj Davis, DO ?? Intubation Additional Comments Atraumatic Intubation Airway not difficult Urgency: elective Final Airway Details Successful airway: ETT Cuffed: yes Successful intubation technique: direct laryngoscopy Facilitating devices/methods: intubating stylet Endotracheal tube insertion site: oral Blade: Arian Blade size: #4 ETT size (mm): 7.5 Cormack-Lehane Classification: grade I - full view of glottis Placement verified by: chest auscultation and capnometry Measured from: teeth ETT to teeth (cm): 23 Number of attempts at approach: 1Final airway type: endotracheal airway Indications and Patient Condition Indications for airway management: anesthesia Spontaneous ventilation: present Sedation level: Yes Preoxygenated: yes Soft Tissue Damage: No Dentition Unchanged: Yes Patient position: sniffing MILS maintained throughout Mask difficulty assessment: 2 - vent by mask + OA or adjuvant +/- NMBA us Tj Davis DO ANESTHESIA ORDERABLES Final Result from Last 3 Months Insurance [facility] [employer] PLAN MED[place] - [place] [facility] PLANS Care Teams Other Spatial Scientist Relationship Specialty Start Date End Date Hope Sevilla MD [address] [place] [address] [phone] PCP - General Family Medicine 11/02/24
--- OUTSIDE RECORDS SUMMARY | 2025-01-24 16:12 | XMS_ITS | Patient Health Record ---
Author Organization [facility] Address [address] [place] [address] Care Team Providers Care Chain Pegger Name Role Phone Di SANDOVAL, Hope Primary Care Provider Justin Elizabeth [phone] Allergies No Known Allergies Reason For Referral No Information Medications Medication SIG (Take, Route, Frequency, Duration) Notes Start Date End Date Status Diclofenac Sodium 1 % APPLY 2 GRAMS TOPI FRAN TO AFFECTED AREA(S) FOUR TIMES DAILY NEEDED FOR PAIN External for 25 Active Fluticasone Propionate 50 MCG/ACT 1 spray in each nostril Nasally Once a day for 30 day(s) Active MiraLax (colon prep) 17 GM/SCOOP 1 238GM bottle mixed with Gatorade or Crystal Light Orally begin at 5:00 p.m. the day before the procedure for 1 day 09/05/2022 Active Dulcolax (colon prep) 5 MG take at 3:00 p.m and 7:00p.m. Orally two tablets twice a day for one day for 1 day 09/05/2022 Active Ketotifen Fumarate 0.025 % INSTILL 1 [place] P INTO THE AFFECTED EYE(S) TWICE DAILY NEEDED FOR EYE REDNESS AND WATERY EYES Ophthalmic for 25 Active Lisinopril 20 MG TAKE 1 TABLET BY JUAN MANUEL TH EVERY DAY Oral for 30 Active Cetirizine HCl 10 MG TAKE 1 TABLET BY MO UTH EVERY DAY NEEDED FOR ALLERGIES Oral for 30 Active Immunizations Vaccine Route Administration Date Status Comme nts Influenza Unknown 09/05/2022 Refused Social History Tobacco Use: Social History Observation Description Date Details (start date - stop date) Former Smoker NA - NA Tobacco Use/Smoking Question Answer Notes Patient is a former smoker How long has it been since you last smoked? > 10 years Section Notes: Nonsmoker; no sig alcohol Problems Problem Type SNOMED Code ICD Code Onset Dates Problem Status W/U Status Risk Notes Problem 570128697 Colon cancer screening (Z12.11) Active confirmed Problem [id number] Preprocedural examination (Z01.818) Active confirmed Plan Of Treatment Future Test Test Name Order Date COLONOSCOPY 09/05/2022 Insurance Providers Payer Name Payer Address Payer Phone Subscriber Number Group Number Insured Name Patient Relationship to Insured Coverage Start Date Coverage End Date [facility] [address] [place] [phone] [id number] CHIDI CASAREZ Self - patient is the insured Medical (General) History Medical History History ICD Code Hypertension Back discomfort Seasonal allergies Denies CO,DM,CVA,Lung disease,renal dise ase Surgical History Surgery Date(Month/Year)
--- OUTSIDE RECORDS SUMMARY | 2025-01-24 16:12 | XMS_ITS | Clinical Summary ---
Author Organization [employer] Address [address] [place] [address] Care Team Providers Care Watch Mechanic Name Role Phone Yesica Sevilla MD Primary Care Provider Renzo Nichole PharmD Unavailable [phone] Allergies No known active allergies Medications Blood Pressure kit Use daily as directed 2 Active cetirizine (ZyrTEC) 10 MG tablet Take 1 tablet (10 mg) by mouth in the morning. 90 tablet 1 4 Active fluticasone (Flonase) 50 MCG/ACT nasal spray Administer 1 spray into each nostril in the morning. Shake gently. Before first use, prime pump. After use, clean tip and replace cap. 16 g 12 4 Active Diclofenac Sodium 1 % gel APPLY 2 GRAMS TOPICALLY TO AFFECTED AREA(S) FOUR TIMES DAILY NEEDED FOR PAIN 100 g 1 4 Active naproxen (Naprosyn) 250 MG tabletIndications :Lumbar disc disease Take 1-2 tablets (250-500 mg) by mouth every 12 (twelve) hours if needed (back pain). 100 tablet 1 4 02/26/20 25 Active acetaminophen (Tylenol 8 Hour) 650 MG ER tabletIndications :Lumbar disc disease Take 1 tablet (650 mg) by mouth every 8 (eight) hours if needed for moderate pain. Do not crush, chew, or split. 100 tablet 1 4 02/26/20 25 Active lisinopril 20 MG tabletIndications :Primary hypertension TAKE 1 TABLET BY MOUTH EVERY DAY 90 tablet 1 4 Active meloxicam (Mobic) 7.5 MG tablet Take 7.5 mg by mouth 2 times daily. 5 Active meclizine (Antivert) 12.5 MG tablet TAKE 1 TABLET BY MOUTH TWICE DAILY NEEDED FOR DIZZINESS 30 tablet 2 5 Active cyclobenzaprine (Flexeril) 5 MG tablet Take 1 tablet by mouth Once per day. 5 Active Active Problems Problem Noted Date Diagnosed Date Benign paroxysmal positional vertigo 04/02/2024 Lumbar facet arthropathy 04/02/2024 Multilevel degenerative disc disease 04/02/2024 Vertigo 01/13/2024 Assessment & Plan (01/24/2025 1:47 PM EDT): - given presumptive diagnosis of BPPV - patient is prescribed meclizine - will evaluate with head imaging, either CT or MRI - given precaution when to contact us or to go to ED Assessment & Plan (01/13/2024 4:42 PM EDT): - given presumptive diagnosis of BPPV - patient is prescribed meclizine - will evaluate with head imaging, either CT or MRI - given precaution when to contact us or to go to ED Dizziness 12/09/2023 Assessment & Plan (01/24/2025 1:46 PM EDT): - CBC and CMP were normal - Holter monitor in Oct 2023 was reassuring for no significant dysrhythmia or conduction abnormality Assessment & Plan (12/09/2023 7:26 AM EDT): - CBC and CMP were normal - Holter monitor in Oct 2023 was reassuring for no significant dysrhythmia or conduction abnormality Tipped teeth 10/27/2023 Dental plaque 10/27/2023 Localized gingival recession 10/27/2023 Cardiovascular event risk 09/27/2022 Assessment & Plan (12/28/2023 11:39 AM EDT): -Last lipid profile in Sep 11-15 -ASCVD risk 5% -Benefit of statin therapy is uncertain at this time -Continue working on lifestyle modifications Assessment & Plan (10/19/2023 5:08 PM EST): -09/30/22 TC 185; LDL 121; HDL 39; TG 141 -ASCVD risk 3.2% -Benefit of statin therapy is uncertain at this time -Continue working on lifestyle modifications Assessment & Plan (03/25/2023 1:20 PM EDT): -09/30/22 TC 185; LDL 121; HDL 39; TG 141 -ASCVD risk 3.2% -Benefit of statin therapy is uncertain at this time -Continue working on lifestyle modifications Assessment & Plan (09/27/2022 10:07 AM EST): -03/28/21 TC 189; TG 185; HDL 45; LDL 113 -ASCVD risk 2.9% -Benefit of statin therapy is uncertain at this time -Continue working on lifestyle modifications Lumbar disc disease 05/08/2018 Assessment & Plan (01/24/2025 1:48 PM EDT): - chronic lumbar back pain - has tried Physical therapy and cortisone injections w/o much improvement - [place] [facility] [place] [facility] - s/p bilateral L5-S1 TFESI in Apr 2021 - APAP, NSAIDs, topical diclofenac gel & lidocaine patches, and muscle relaxants w/o much improvement - saw [facility], MRI showed multilevel lumbar disc protrusions with several level modic changes. Recommended Intercept procedure, per pt insurance won't cover it - will check with insurance for why he got declined for intercept - will trial Celebrex 200 mg 07/27/24 Assessment & Plan (07/28/2024 9:42 PM EST): - chronic lumbar back pain - has tried Physical therapy and cortisone injections w/o much improvement - [place] [facility] [place] [facility] - s/p bilateral L5-S1 TFESI in Apr 2021 - APAP, NSAIDs, topical diclofenac gel & lidocaine patches, and muscle relaxants w/o much improvement - saw [facility], MRI showed multilevel lumbar disc protrusions with several level modic changes. Recommended Intercept procedure, per pt insurance won't cover it - will check with insurance for why he got declined for intercept - will trial Celebrex 200 mg 07/27/24 Assessment & Plan (02/26/2024 11:27 AM EDT): -Atraumatic acute on chronic low back pain w/ hx lumbar disc disease -Previous trials include: Physical therapy [facility] [place] [facility] - s/p bilateral L5-S1 TFESI in Apr 2021 APAP, NSAIDs, topical diclofenac gel & lidocaine patches, and muscle relaxants - No bowel/bladder incontinence or saddle paresthesia - Update Lumbar XR - Referral to [facility] for further eval - Refill of naproxen & APAP sent to pharmacy PRN - Follow up precautions reviewed Assessment & Plan (12/28/2023 11:37 AM EDT): -previously followed by [facility] [place] [facility] [place], last seen in May 2021 -bilateral L5-S1 TFESI in Apr 2021 -Tried APAP, cyclobenzaprine, baclofen, diclofenac gel, and lidocaine patch, which were all ineffective -Tried physical therapy, which pt did not have desired outcome -Continue conservative management and judicious use of NSAIDs prn -Recommended to resume home back exercise Assessment & Plan (03/25/2023 1:17 PM EDT): -previously followed [place] [facility] [place], last seen in May 2021 -bilateral L5-S1 TFESI in Apr 2021 -Tried APAP, cyclobenzaprine, baclofen, diclofenac gel, and lidocaine patch, which were all ineffective -Tried physical therapy, which pt did not have desired outcome -Continue conservative management and judicious use of NSAIDs prn -Recommended to resume home back exercise Assessment & Plan (09/27/2022 10:02 AM EST): -previously followed [place] [facility] [place], last seen in May 2021 -bilateral L5-S1 TFESI in Apr 2021 -Tried APAP, cyclobenzaprine, baclofen, diclofenac gel, and lidocaine patch, which were all ineffective -Tried physical therapy, which pt did not have desired outcome -Continue conservative management and judicious use of NSAIDs prn -Recommended to resume home back exercise Obesity 05/08/2018 Assessment & Plan (07/28/2024 9:42 PM EST): - 09/30/22 A1C 5.3% - continue working on lifestyle modification - consider evaluation for MARCELINO Assessment & Plan (12/28/2023 11:37 AM EDT): - 09/30/22 A1C 5.3% - continue working on lifestyle modification - consider evaluation for MARCELINO Assessment & Plan (10/19/2023 5:09 PM EST): - 09/30/22 A1C 5.3% - continue working on lifestyle modification - consider evaluation for MARCELINO Assessment & Plan (03/25/2023 1:20 PM EDT): - 09/30/22 A1C 5.3% - continue working on lifestyle modification Zulema omariis 05/08/2018 Hypertension 12/13/2013 Assessment & Plan (01/24/2025 1:47 PM EDT): -Goal BP < 140/90 per JNC-8 and < 130/80 per ACC/AHA guideline (Treatment threshold >= 140/90 ) -Treatment Hx: CDTM evaluation, white-coat HTN -BP is at goal -Continue monitoring home BP -Continue working on lifestyle modifications -Continue current medications: Lisinopril 20 mg daily -Follow up in 3-6 mo, sooner if any problem arises Assessment & Plan (07/28/2024 9:33 PM EST): -Goal BP < 140/90 per JNC-8 and < 130/80 per ACC/AHA guideline (Treatment threshold >= 140/90 ) -Treatment Hx: CDTM evaluation, white-coat HTN -BP is at goal -Continue monitoring home BP -Continue working on lifestyle modifications -Continue current medications: Lisinopril 20 mg daily -Follow up in 3-6 mo, sooner if any problem arises Assessment & Plan (04/19/2024 8:07 AM EDT): >>ASSESSMENT AND PLAN FOR HTN (HYPERTENSION) WRITTEN ON 09/27/2022 10:01 AM BY YESICA SEVILLA MD -Goal BP < 140/90 per JNC-8 and < 130/80 per ACC/AHA guideline (Treatment threshold >= 140/90 ) -Treatment Hx: CDTM evaluation, white-coat HTN -Continue working on lifestyle modifications -Continue current medications: Lisinopril 20 mg daily -Follow up in 3-6 mo, sooner if any problem arises Assessment & Plan (04/19/2024 8:07 AM EDT): >>ASSESSMENT AND PLAN FOR HTN (HYPERTENSION) WRITTEN ON 03/25/2023 1:15 PM BY YESICA SEVILLA MD -Goal BP < 140/90 per JNC-8 and < 130/80 per ACC/AHA guideline (Treatment threshold >= 140/90 ) -Treatment Hx: CDTM evaluation, white-coat HTN -SBP is at goal, DBP is slightly elevated -Continue working on lifestyle modifications -Continue current medications: Lisinopril 20 mg daily -Follow up in 3-6 mo, sooner if any problem arises Assessment & Plan (04/19/2024 8:07 AM EDT): >>ASSESSMENT AND PLAN FOR HTN (HYPERTENSION) WRITTEN ON 10/19/2023 5:09 PM BY YESICA SEVILLA MD -Goal BP < 140/90 per JNC-8 and < 130/80 per ACC/AHA guideline (Treatment threshold >= 140/90 ) -Treatment Hx: CDTM evaluation, white-coat HTN -SBP is at goal, DBP is slightly elevated -Continue monitoring home BP -Continue working on lifestyle modifications -Continue current medications: Lisinopril 20 mg daily -Follow up in 3-6 mo, sooner if any problem arises Assessment & Plan (04/19/2024 8:07 AM EDT): >>ASSESSMENT AND PLAN FOR HTN (HYPERTENSION) WRITTEN ON 12/28/2023 11:36 AM BY YESICA SEVILLA MD -Goal BP < 140/90 per JNC-8 and < 130/80 per ACC/AHA guideline (Treatment threshold >= 140/90 ) -Treatment Hx: CDTM evaluation, white-coat HTN -SBP is at goal, DBP is slightly elevated -Continue monitoring home BP -Continue working on lifestyle modifications -Continue current medications: Lisinopril 20 mg daily -Follow up in 3-6 mo, sooner if any problem arises Assessment & Plan (04/19/2024 8:07 AM EDT): >>ASSESSMENT AND PLAN FOR HTN (HYPERTENSION) WRITTEN ON 01/13/2024 4:43 PM BY MINA WOODS -Goal BP < 140/90 per JNC-8 and < 130/80 per ACC/AHA guideline (Treatment threshold >= 140/90 ) -Treatment Hx: CDTM evaluation, white-coat HTN -SBP is at goal, DBP is slightly elevated -Continue monitoring home BP -Continue working on lifestyle modifications -Continue current medications: Lisinopril 20 mg daily -Follow up in 3-6 mo, sooner if any problem arises Encounters Date Type Department Care Team Description 01/24/2025 2:00 PM EDT Office Visit [address] [address] Yesica Sevilla MD Routine general medical examination at a health care facility (Primary Dx); Vertigo; Dizziness; Hypertension, unspecified type; Multilevel degenerative disc disease; Lumbar facet arthropathy; Lumbar disc disease; Class 1 obesity due to excess calories without serious comorbidity with body mass index (BMI) of 30.0 to 30.9 in adult; Cardiovascular event risk; Benign paroxysmal positional vertigo, unspecified laterality; Screening for lipid disorders; Screening for diabetes mellitus; Immunity status testing 01/24/2025 Travel 01/12/2025 Patient Outreach [facility] [address], [place] [phone] Yescia Sevilla MD Pre-visit Planning (SDOH was already completed) 12/10/[address] [phone] Yesica Sevilla MD PE R/s 12/10/[address] [phone] Yesica Sevilla MD Appointment Request 12/02/2024 Patient Outreach [address] [address] Yesica Sevilla MD Pre-visit Planning (SDOH Screening negative and Tobacco screening negative) 11/22/2024 Orders Only [address] [place] [address] Yesica Sevilla MD 11/19/2024 2:30 PM EST Office Visit [facility] [address] [place] [address] Pedro, Izabel, OD Choroidal nevus of left eye (Primary Dx); White without pressure of peripheral retina of left eye; Presbyopia 11/19/2024 Travel 11/18/2024 Telephone [facility] [address] [place] [address] Yesica Sevilla MD Med Refill; Medication Question from Last 3 Months Immunizations Name Administration Dates Next Due Hep B, adult 03/05/2007,01/28/2007 Influenza injectable quadrivalent preservative f ree 09/28/2018 Influenza, IIV3, injectable 05/29/2014 Influenza, Split (incl. purified surface antigen ) 06/18/2013 MMR 03/05/2007 TD (adult), 2 Lf tetanus tox oid, preservative free, adsorbed 08/29/2017,06/18/2004 Tdap 03/30/2013 Family History Medical History Relation Name Comments Hypertension Mother Glaucoma Neg Hx Relation Name Status Comments Mother Social History Tobacco Use Types Packs/Day Years Used Date Smoking Tobacco: Former Cigarettes Passive Smoke Exposure: Never Smokeless Tobacco: Never Tobacco Cessation:Counseling Given: Not Answered Alcohol Use Standard Drinks/Week Comments Never 0 (1 standard drink = 0.6 oz pur e alcohol) Depression Answer Date Recorded Patient Health Questionnaire-9 Score 0 07/27/2024 Patient Health Questionnaire-9 Score 0 07/27/2024 Last PHQ-9: Questionnaire Data Not on file 1 09/26/2023 Housing Stability Answer Date Recorded What is your housing situation today? I have susannaaamir adamson 12/02/[address] you li ve. Do you have problems with any of the following? None of the above 12/02/2024 Food Insecurity Answer Date Recorded Within the past 12 months, y ou worried that your food would run out before you got money to buy more: Never True 12/02/2024 Within the past 12 months,th e food you bought just didn't last and you didn't have enough money to get more: Never True Transportation Answer Date Recorded In the past 12 months, has l ack of transportation kept you from medical appts, meetings, work or from getting things needed for daily living? No 12/02/2024 Utilities Answer Date Recorded In the past 12 months, has t he electric, gas, oil or water company threatened to shut off services in your home? No 12/02/2024 Depression Answer Date Recorded Patient Health Questionnaire-2 Score 0 07/27/2024 Internet Access Answer Date Recorded Internet Access Q1 Yes 12/02/2024 Internet Access Q2 Not on file 12/02/2024 Sex and Gender Information Value Date Recorded Sex Assigned at Male 07/22/2022 10:17 AM EDT Legal Sex Male 10:17 AM EDT Gender Identity Male 07/22/2022 10:17 AM EDT Sexual Orientation Straight 07/22/2022 10 :17 AM EDT Last Filed Vital Signs Vital Sign Reading Time Taken Comments Blood Pressure 131/82 01/24/2025 1:53 PM EDT Pulse 67 01/24/2025 1:53 PM EDT Temperature 36.1 ??C (96.9 ??F) 01/24/2025 1:53 PM ED T Respiratory Rate 12 01/24/2025 1:53 PM EDT Oxygen Saturation 99% 01/24/2025 1:53 PM EDT Inhaled Oxygen Concentration - - Weight 92 kg (202 lb 12.8 oz) 01/24/2025 1:53 PM EDT Height 173.2 cm (5' 8.17 ) 01/24/2025 1:53 PM ED T Body Mass Index 30.68 01/24/2025 1:53 PM EDT Plan of Treatment Health Maintenance Due Date Last Done Comments Anal Pap 1977 CT Colonography 1977 FIT DNA/Cologuard 1977 FIT 1977 FOBT 1977 Sigmoidoscopy 1977 Family Planning (PISQ) 02/15/1992 Hepatitis A Vaccines (1 of 2 - Risk 2-dose series) 02/15/1996 Hepatitis B Vaccines (3 of 3 - 19+ 3-dose series) 07/31/2007 03/05/2007, 01/28/2007 Dental Oral Exam 04/27/2024 10/27/2023, , 04/08/2017, Additional history exists Dental Prophylaxis 04/27/2024 10/27/2023, 0 02/12/2022, 06/02/2019, Additional history exists COVID-19 Vaccine ( season) 2024 Influenza Vaccine (#1) 2024 9, 05/29/2014, 06/18/2013 Dental X-Ray: Bitewings 10/28/2024 10/27/19 24, 02/12/2022, 06/02/2019, Additional history exists Alcohol/Substance Use Screening 07/27/2025 07/27/2024 Depression Screening 07/27/2025 07/27/2024, 07/27/20 SDOH Screening 12/02/2025 12/02/2024 Tobacco Screening 01/24/2026 01/24/2025 Dental X-Ray: Full Mouth 10/28/2026 024, 06/02/2019, 02/23/2016, Additional history exists Zoster Vaccines (1 of 2) 2027 DTaP/Tdap/Td Vaccines (3 - Td or Tdap) 08/29/2027 08/29/2017, 03/30/2013, 06/18/2004 Lipid Panel 10/14/2028 10/14/2023, 0105/2023, 03/28/2021, Additional history exists Colonoscopy 11/01/2032 11/01/2022 Colorectal Cancer Screening 11/01/2032 RSV Patients and Patients Aged 60 years or older (1 - 1-dose 75+ series) 02/15/2052 HIV Screening Completed 03/28/2021 Hepatitis C Screening Completed 07/17/2022 , 07/09/2022, 03/28/2021 HIB Vaccines Aged Out No longer eligi ble based on patient's age to complete this topic HPV Vaccines Aged Out No longer eligi ble based on patient's age to complete this topic IPV Vaccines Aged Out No longer eligi ble based on patient's age to complete this topic Meningococcal Vaccine Aged Out No ibrahima priti eligible based on patient's age to complete this topic Pneumococcal Vaccine: Pediatrics (0 to 5 Years) and At-Risk Patients (6 to 49) Years) Aged Out No longer eligible based on patient's age to complete this topic RSV under 20 months Aged Out No longe r eligible based on patient's age to complete this topic Rotavirus Vaccines Aged Out No longer eligible based on patient's age to complete this topic Goals Goal Patient Goal Type Associated Problems Recent Progress Patient-Stated? Author Blood Pressure < 140/90 Blood Pressure 131/82( 025 1:53 PM EDT) No Renzo Nichole, Cr Procedures Procedure Name Priority Date/Time Associated Diagnosis Comments PROPHYLAXIS - ADULT Routine 10/27/2023 3 :00 PM EST Dental plaque INTRAORAL - COMPLETE SERIES OF RADIOGRAPHIC IMAGES Routine 10/27/2023 3:00 PM EST Tipped teeth Dental plaque Localized gingival recession PERIODIC ORAL EVALUATION - ESTABLISHED PATIENT Routine 10/27/2023 3:00 PM EST LIPID PANEL WITH REFLEX TO DIRECT LDL Routine 10/14/2023 11:06 AM EST Primary hypertension HM COLONOSCOPY Routine 11/01/2022 ZZZ HISTORICAL HEPATITIS C ANTIBODY RFLX Routine 07/17/2022 11:58 AM EDT HIV 1/2 ANTIGEN/ANTIBODY, FOURTH GENERATION W/RFL Routine 03/28/2021 10:41 AM EDT from Last 3 Months or Most Recently Relevant to Health Maintenance Results * (ABNORMAL) Lipid Panel with Reflex to Direct LDL (10/14/2023 11:06 AM EST) Triglycerides 109 <150 mg/dL [facility] Comment:Desirable Triglyceri de: less than 150 mg/dLBorderline High Triglyceride 150-199 mg/dLHigh Triglyceride: 200-499 mg/dLVery High Triglyceride: greater than or equal to 5OO mg/dL Cholesterol 177 <200 mg/dL [facility] Comment:Desirable Cholestero l: less than 200 mg/dLBorderline High Cholesterol: 200-239 mg/dLHigh Cholesterol: greater than 239 mg/dL LDL Cholesterol Calculated 120(H) <100 mg/dL [facility] Comment:Desirable LDL: less than 100 mg/dLNear Optimal/Above Optimal LDL: 110- 129 mg/dLBorderline High LDL: 130-159 mg/dLHigh LDL: 160-189 mg/dLVery High LDL: greater than or equal to 190 mg/dL HDL Cholesterol 36(L) >40 mg/dL [facility] Comment:Desirable HDL: great er than 40 mg/dL Note: This HDL assay may give artificially low results in patients with liver disease. Blood 10/14/2023 11:0 6 AM EST 10/14/2023 1:34 PM EST Yesica Sevilla MD LAB BLOOD ORDERABLES Final Resul t [facility] [address] [place] [address] [phone] * Hm Colonoscopy (11/01/2022) Colonoscopy peform Reed Provider HEALTH MAINTENANCE Final Result * HEPATITIS C ANTIBODY RFLX (07/17/2022 11:58 AM EDT) Hepatitis C Antibody Nonreactive Nonreactive [facility] Comment: Antibodies to HCV not detected; does not exclude early acute HCV infection. 07/17/2022 11:5 8 AM EDT Yesica Sevilla MD HISTORICAL/NON ORDERABLE LABS Fi nal Result [facility] * HIV 1/2 ANTIGEN/ANTIBODY,FOURTH GENERATION W/RFL (03/28/2021 10:41 AM EDT) HIV-1/2 ANTIGEN AND ANTIBODIES, 4TH GENERATION W/ REFLEX NON-REACT KRYSTIAN NON-REACT KRYSTIAN [facility] Comment: HIV-1 antigen and HIV-1/HIV-2 antibodies were not detected. There is no laboratory evidence of HIV infection. ?? PLEASE NOTE: This information has been disclosed to you from records whose confidentiality may be protected by state law. ??If your state requires such protection, then the state law prohibits you from making any further disclosure of the information without the specific written consent of the person to whom it pertains, or as otherwise permitted by law. A general authorization for the release of medical or other information is NOT sufficient for this purpose. ? For additional information please refer to http://education.[place]/faq/TQM708 (This link is being provided for informational/ educational purposes only.) ? The performance of this assay has not been clinically validated in patients less than 2 years old. ?? 03/28/2021 10:4 1 AM EDT us Yesica Sevilla MD LAB BLOOD ORDERABLES Final Resul t [facility] Anywhere [address] from Last 3 Months or Most Recently Relevant to Health Maintenance Insurance [facility] PARTIAL [facility] MED DENTAL - HSN PARTIAL (MEDICAID) [place], [place] Care Teams Watch Mechanic Relationship Specialty Start Date End Date Yesica Sevilla MD [address] [place] [address] PCP - General Family Medicine 09/11/20 Renzo Nichole, PharmD [address] [place] [address] Pharmacist Internal Medicine 01/27/23
--- OUTSIDE RECORDS SUMMARY | 2025-01-24 16:12 | XMS_ITS | Encounter Summary ---
Author Organization [employer] [facility] Address [address] [place] [address] [address] [place] [address] Care Team Providers Care Veneer Manufacturer Name Role Phone Hope Sevilla MD Primary Care Provider [phone] Renzo Nichole PharmD Unavailable [phone] Encounter Details Date Type Department Care Team (Latest Contact Info) Description 02/12/2022 Abstract [facility] CONVERSIONS Dental, Provider, DDS Social History Tobacco Use Types Packs/Day Years Used Date Smoking Tobacco: Never Assessed Sex and Gender Information Value Date Recorded Sex Assigned at Male 07/22/2022 10:17 AM EDT Legal Sex Male 10:17 AM EDT Gender Identity Male 07/22/2022 10:17 AM EDT Sexual Orientation Straight 07/22/2022 10 :17 AM EDT documented as of this encounter Plan of Treatment Not on file documented as of this encounter Visit Diagnoses Not on filedocumented in this encounter Care Teams Veneer Manufacturer Relationship Specialty Start Date End Date Hope Sevilla MD [address] [place] [address] PCP - General Family Medicine 09/11/20 Renzo Nichole, PharmD [address] [place] [address] Pharmacist Internal Medicine 01/27/23 documented as of this encounter
--- OUTSIDE RECORDS SUMMARY | 2025-01-24 16:12 | XMS_ITS | Encounter Summary ---
Author Organization [employer] [facility] Address [address] [place] [address] [address] [place] [address] Care Team Providers Care Swing Manager Name Role Phone Hope Sevilla MD Primary Care Provider [phone] Renzo Nichole PharmD Unavailable [phone] Encounter Details Date Type Department Care Team (Latest Contact Info) Description 06/02/2019 Abstract [facility] CONVERSIONS Dental, Provider, DDS Social [...] on filedocumented in this encounter Care Teams Swing Manager Relationship Specialty Start Date End Date Hope Sevilla MD [address] [place] [address] PCP - General Family Medicine 09/11/20 Renzo Nichole, PharmD [address], [place] [phone] Pharmacist Internal Medicine 01/27/23 documented as of this encounter
--- OUTSIDE RECORDS SUMMARY | 2025-01-24 16:12 | XMS_ITS | Encounter Summary ---
Author Organization [employer] Address [address] [facility] 7t [place] [address] Care Team Providers Care Fleet Administrative Assistant Name Role Phone Hope Sevilla MD Primary Care Provider [phone] Renzo Nichole PharmD Unavailable [phone] Encounter Details Date Type Department Care Team (Latest Contact Info) Description 01/24/2025 Travel Social History Tobacco Use Types Packs/Day Years [...] housing situation today? I have susanna adamson 12/02/[address] you [...] t he electric, gas, oil or water [employer] threatened to shut off services in your [...] documented as of this encounter Care Teams Fleet Administrative Assistant Relationship Specialty Start Date End Date Hope Sevilla MD [address] [place] [address] PCP - General Family Medicine 09/11/20 Renzo Nichole, PharmD [address] [place] [address] Pharmacist Internal Medicine 01/27/23 documented as of this encounter
--- OUTSIDE RECORDS SUMMARY | 2025-01-24 16:12 | XMS_ITS | Encounter Summary ---
Author Organization [employer] Address [address] [place] [address] [address] [place] [address] Care Team Providers Care Bean Roaster Name Role Phone Hope Sevilla MD Primary Care Provider [phone] Renzo Nichole PharmD Unavailable [phone] Reason for Visit * Reason Onset Date Comments Appointment Request 12/10/2024 Encounter Details Date Type Department Care Team ([facility] st Contact Info) Description 12/10/2024 Telephone [facility] MED[facility] [address] [place] [address] Hope Sevilla MD [address] [place] [address] Appointment Request Social History Tobacco Use Types Packs/Day Years [...] encounter Miscellaneous Notes * Telephone Encounter - Kristin Bowen - 12/10/2024 10:15 AM EDT Tc from pt requesting a call back to r/s physical appointment. documented in this encounter Plan of Treatment Not on file documented as of this encounter Goals Goal Patient Goal Type Associated Problems Recent Progress Patient-Stated? Author Blood Pressure < 140/90 Blood Pressure 131/82( 025 1:53 PM EDT) No Renzo Nichole, Cr documented as of this encounter Visit Diagnoses Not on filedocumented in this encounter Additional Health Concerns Assessment Noted Time PHQ-9 Depression Total Score: 0 07/27/20 24 3:47 PM EST documented as of this encounter Care Teams Bean Roaster Relationship Specialty Start Date End Date Hope Sevilla MD [address] [place] [address] PCP - General Family Medicine 09/11/20 Renzo Nichole PharmD [address] [place] [address] Pharmacist Internal Medicine 01/27/23 documented as of this encounter
--- OUTSIDE RECORDS SUMMARY | 2025-01-24 16:12 | XMS_ITS | Encounter Summary ---
Author Organization [employer] Address [address] [facility] 7t [place] [address] Care Team Providers Care Intern Name Role Phone Hope Sevilla MD Primary Care Provider [phone] Renzo Nichole PharmD Unavailable [phone] Encounter Details Date Type Department Care Team (Late st Contact Info) Description 01/24/2025 2:00 PM EDT Office Visit [facility] MED[facility]INE [address] [place] [address] Hope Sevilla MD [address] [place], [place] [phone] Routine general medical examination at a health [...] Screening for diabetes mellitus; Immunity status testing Social History Tobacco Use Types Packs/Day Years [...] AM EDT documented as of this encounter Last Filed Vital Signs Vital Sign Reading [...] Mass Index 30.68 01/24/2025 1:53 PM EDT documented in this encounter Miscellaneous Notes * Assessment & Plan Note - Dodie Lyle MA - 01/24/2025 1:48 PM EDTAssociated Problem(s): Lumbar disc disease - chronic lumbar back pain - has tried Physical therapy and cortisone injections w/o much improvement - seen [facility] - s/p bilateral L5-S1 TFESI in Apr 2021 - APAP, NSAIDs, topical diclofenac gel & lidocaine patches, and muscle relaxants w/o much improvement - saw [facility], MRI showed multilevel lumbar disc protrusions with several level modic changes. Recommended Intercept procedure, per pt insurance won't cover it - will check with insurance for why he got declined for intercept - will trial Celebrex 200 mg 07/27/24 * Assessment & Plan Note - Dodie Lyle MA - 01/24/2025 1:47 PM EDTAssociated Problem(s): Hypertension -Goal BP < 140/90 per JNC-8 and < 130/80 per ACC/AHA guideline (Treatment threshold >= 140/90 ) -Treatment Hx: CDTM evaluation, white-coat HTN -BP is at goal -Continue monitoring home BP -Continue working on lifestyle modifications -Continue current medications: Lisinopril 20 mg daily -Follow up in 3-6 mo, sooner if any problem arises * Assessment & Plan Note - Dodie Lyle MA - 01/24/2025 1:47 PM EDTAssociated Problem(s): Vertigo - given presumptive diagnosis of BPPV - patient is prescribed meclizine - will evaluate with head imaging, either CT or MRI - given precaution when to contact us or to go to ED * Assessment & Plan Note - Dodie Lyle MA - 01/24/2025 1:46 PM EDTAssociated Problem(s): Dizziness - CBC and CMP were normal - Holter monitor in Oct 2023 was reassuring for no significant dysrhythmia or conduction abnormality documented in this encounter Plan of Treatment Scheduled Orders Name Type Priority Associated Diagnoses Orde r Schedule Hemoglobin A1c Lab Routine Screening for diabetes mellitus Expected: 01/24/2025 (Approximate), Expires: 01/24/2026 Comprehensive Metabolic Panel Lab Routine Hypertension, unspecified type Expected: 01/24/2025 (Approximate), Expires: 01/24/2026 Lipid Panel with Reflex to Direct LDL Lab Routine Screening for lipid disorders Expected: 01/24/2025 (Approximate), Expires: 01/24/2026 Albumin, Random Urine W/Creatinine Lab Routine Hypertension, unspecified type Expected: 01/24/2025 (Approximate), Expires: 01/24/2026 Hepatitis A Antibody, Total Lab Routine Immunity status testing Expected: 01/24/2025 (Approximate), Expires: 01/24/2026 documented as of this encounter Goals Goal Patient Goal Type Associated Problems Recent Progress Patient-Stated? Author Blood Pressure < 140/90 Blood Pressure 131/82( 025 1:53 PM EDT) No Renzo Nichole PharmD documented as of this encounter Visit Diagnoses Diagnosis Routine general medical examination at a health care facility- Primary Vertigo Dizziness and giddiness Dizziness Dizziness and giddiness Hypertension, unspecified type Multilevel degenerative disc disease Lumbar facet arthropathy Spondylosis of unspecified site without mention of myelopathy Lumbar disc disease Other and unspecified disc disorder of lumbar region Class 1 obesity due to excess calories without serious comorbidity with body mass index (BMI) of 30.0 to 30.9 in adult Cardiovascular event risk Benign paroxysmal positional vertigo, unspecified laterality Screening for lipid disorders Screening for diabetes mellitus Immunity status testing Antibody response examination documented in this encounter Additional Health Concerns Assessment Noted Time PHQ-9 Depression Total Score: 0 07/27/20 24 3:47 PM EST documented as of this encounter Care Teams Intern Relationship Specialty Start Date End Date Hope Sevilla MD [address] [place] [id number] PCP - General Family Medicine 09/11/20 Renzo Nichole, PharmD [address] [place] [address] Pharmacist Internal Medicine 01/27/23 documented as of this encounter
--- OUTSIDE RECORDS SUMMARY | 2025-01-24 16:12 | XMS_ITS | Encounter Summary ---
Author Organization [facility] Address [address] [place] [address] [address], [place] [address] Care Team Providers Care Core Piler Name Role Phone Hope Sevilla MD Primary Care Provider [phone] Renzo Nichole PharmD Unavailable [phone] Encounter Details Date Type Department Care Team (Late st Contact Info) Description 11/12/2022 Abstract [facility] MED[facility]INE [address] [place] [address] Hope Sevilla MD [address] [place] [address] Social History Tobacco Use Types Packs/Day Years Used Date Smoking Tobacco: Never Passive Smoke Exposure: Never Smokeless Tobacco: Never Sex and Gender Information Value Date Recorded Sex Assigned at Male 07/22/2022 10:17 AM EDT Legal Sex Male 10:17 AM EDT Gender Identity Male 07/22/2022 10:17 AM EDT Sexual Orientation Straight 07/22/2022 10 :17 AM EDT documented as of this encounter Plan of Treatment Not on file documented as of this encounter Visit Diagnoses Not on filedocumented in this encounter Care Teams Core Piler Relationship Specialty Start Date End Date Hope Sevilla MD [address] [place] [address] PCP - General Family Medicine 09/11/20 Renzo Nichole, PharmD [address] [place] [address] Pharmacist Internal Medicine 01/27/23 documented as of this encounter
--- OUTSIDE RECORDS SUMMARY | 2025-01-24 16:12 | XMS_ITS | Encounter Summary ---
Author Organization [employer] Address [address] [facility] 7 [place] [address] Care Team Providers Care Western Philosophy Professor Name Role Phone Hope Sevilla MD Primary Care Provider [phone] Renzo Nichole PharmD Unavailable [phone] Reason for Visit * Reason Onset Date Comments Med Refill 02/10/2024 Encounter Details Date Type Department Care Team (Late st Contact Info) Description 02/10/2024 Refill [facility] MED[facility]INE [address] [place] [address] Hope Sevilla MD [address] [place], [place] [phone] Social History Tobacco Use Types Packs/Day Years Used Date Smoking Tobacco: Never Passive Smoke Exposure: Never Smokeless Tobacco: Never Alcohol Use Standard Drinks/Week Comments Never 0 (1 standard drink = 0.6 oz pur e alcohol) Depression Answer Date Recorded Patient Health Questionnaire-9 Score 3 03/24/2023 Housing Stability Answer Date Recorded What is your housing situation today? I have susannaaamir adamson 07/24/[address] you [...] Answer Date Recorded Patient Health Questionnaire-2 Score 2 03/24/2023 Sex and Gender Information Value Date Recorded [...] Assessment Noted Time PHQ-9 Depression Total Score: 3 03/24/20 23 3:13 PM EDT documented as of this encounter Care Teams Western Philosophy Professor Relationship Specialty Start Date End Date Hope Sevilla MD [address] [place] [address] PCP - General Family Medicine 09/11/20 Renzo Nichole, PharmD [address] [place] [address] Pharmacist Internal Medicine 01/27/23 documented as of this encounter
--- OUTSIDE RECORDS SUMMARY | 2025-01-24 16:12 | XMS_ITS | Encounter Summary ---
Author Organization [employer] Address [address] [facility] 7t [place] [address] Care Team Providers Care Hammer Mill Operator Name Role Phone Hope Sevilla MD Primary Care Provider [phone] Renzo Nichole PharmD Unavailable [phone] Encounter Details Date Type Department Care Team (Late st Contact Info) Description 11/22/2024 Orders Only [facility] MEDICINE [address] [place], [place] [phone] Hope Sevilla MD [address] [place], [place] [phone] Social History Tobacco Use Types Packs/Day Years [...] documented as of this encounter Care Teams Hammer Mill Operator Relationship Specialty Start Date End Date Hope Sevilla MD [address] [place] [address] PCP - General Family Medicine 09/11/20 Renoz Nichole, CassidyD [address] [place] [address] Pharmacist Internal Medicine 01/27/23 documented as of this encounter
--- OUTSIDE RECORDS SUMMARY | 2025-01-24 16:12 | XMS_ITS | Encounter Summary ---
Author Organization [employer] Address [address] [facility] 7t [place] [address] Care Team Providers Care Reimbursement Specialist Name Role Phone Hope Sevilla MD Primary Care Provider [phone] Renzo Nichole PharmD Unavailable [phone] Reason for Visit * Reason Onset Date Comments Med Refill 02/10/2024 Encounter Details Date Type Department Care Team (Late st Contact Info) Description 02/10/2024 Refill [facility] [address] [place] [address] Alli Conrad MD [address] [place], [place] [phone] Primary hypertension Social History Tobacco Use Types Packs/Day Years [...] as of this encounter Visit Diagnoses Diagnosis Primary hypertension Unspecified essential hypertension documented in this encounter Additional Health Concerns Assessment Noted Time PHQ-9 Depression Total Score: 3 03/24/20 23 3:13 PM EDT documented as of this encounter Care Teams Reimbursement Specialist Relationship Specialty Start Date End Date Hope Sevilla MD [address] [place] [address] PCP - General Family Medicine 09/11/20 Renzo Nichole, CassidyD [address] [place] [address] Pharmacist Internal Medicine 01/27/23 documented as of this encounter
[2025-01-24 16:50] LABS: Albumin Level 4.5 g/dL (3.5-5.0); Alkaline Phosphatase 84 U/L (39-117); Anion Gap 11 (12-20); Aspartate Amino Transferase 37 U/L (5-37); Bilirubin Total 0.5 mg/dL (0.0-1.0); Blood Urea Nitrogen 16 mg/dL (9-16); Calcium 9.5 mg/dL (8.4-10.2); Carbon Dioxide 29 mmol/L (22-29); Chloride 105 mmol/L (96-108); Cholesterol 186 mg/dL (<200); Estimated Glomerular Filt Rate > 60; Glucose Random 81 mg/dL (60-115); HDL Cholesterol 38 mg/dL (>40); LDL Cholesterol Calculated 106 mg/dL (<100); Potassium 4.6 mmol/L (3.3-5.1); Sodium 140 mmol/L (135-145); Total Protein 7.8 g/dL (6.5-8.0); Triglycerides 214 mg/dL (<150)
[2025-01-24 17:02] LABS: Estimated Average Glucose 105 mg/dL; Hemoglobin A1C 152.0341 umol/L; Hemoglobin A1c % 5.3 % (<6.0); Reflex LDLD? No; Total Hemoglobin (HGBA1C) 4381.4917 umol/L
[2025-01-24 17:09] LABS: Alanine Aminotransferase 43 U/L (0-40)
[2025-01-27 03:58] LABS: Hepatitis A Antibody IgG Nonreactive (Nonreactive); ~Hepatitis A Antibody IgG 0.24 S/CO (0.00-0.99)
== END 2025-01-24 14:38 | disposition home or self-care (01) ==
LOC: HO.HHCL 14:37
PROVIDERS: Visit Provider Family Medicine
DX: Z01.84 Encounter for antibody response examination (principal); Z13.1 Encounter for screening for diabetes mellitus; Z13.220 Encounter for screening for lipoid disorders; I10 Essential (primary) hypertension
CPT/HCPCS: 36415; 80053; 80061; 83036; 86708